=== PATIENT | female | born 1985 | race Caucasian/White ===

== ENCOUNTER 2016-11-25 08:51 | Outpatient (CLI) | payer MEDICAID ==
[~2016-11-25] VITALS: Ht 154.9 cm; Wt 78.8 kg
[2016-11-25 09:23] VITALS: Ht 154.9 cm; Wt 78.8 kg
[2016-11-25 09:24] VITALS: BP 123/58; PULSE 65
[2016-11-25] MEDS ORDERED: PRENAT PO (09:25)
--- NOTE | 2016-11-25 09:58 | RADRPT ---
PROCEDURE: OB ultrasound for biophysical profile CLINICAL INDICATION: Post dates TECHNIQUE: Multiple sonographic images of the pelvis were obtained. Transabdominal views of the g ravid uterus are available for review. The images were reviewed on a PACS workstation. COMPARISON: None FINDINGS: breathing movement = 2/2 tone = 2/2 motion = 2/2 PHANI = 2/2 PHANI = 9.5 cm Single live intrauterine with cardiac activity of 144 bpm. position is cephal ic. The placenta is anterior. IMPRESSION: 1. Single live intrauterine gestation. 2. Biophysical profile = 8/8. 3. PHANI = 9.5 cm. RPTAT: HH .Maritza James MD, MD Date Time Electronically viewed and signed by .Maritza James MD, on 11/25/2016 09:58 .G/
--- NOTE | 2016-11-25 10:01 | RADRPT ---
PROCEDURE: US OB. CLINICAL INDICATION: Post dates TECHNIQUE: Multiple sonographic images of the pelvis were obtained. Transabdominal imaging only w as performed. The images were reviewed on a PACS workstation. COMPARISON: No prior studies are available for comparison. FINDINGS: There is a single live intrauterine gestation. Cardiac activity is present with 148 beats per minut e. position is cephalic. Measurements were made in order to determine age. The results are as follows: BPD = 8.95 cm HC = 32.43 cm AC = 34.73 cm FL = 7.12 cm. Estimated gestational age of approximately 37 weeks 0 days. The estimated date of delivery is 12/16/2016. The EFW = 3264 g, 22 %ile. The placenta is anterior. There is no evidence for an abruption or placenta previa. IMPRESSION: 1. Single live intrauterine gestation of approximately 37 weeks 0 days, by ultrasound criteria. 2. The estimated date of delivery is 12/16/2016. 3. The estimated weight is 32 64 g, 22 %ile. RPTAT: HH .Maritza James MD, MD Date Time Electronically viewed and signed by .Maritza James MD, on 11/25/2016 10:01 .G/
--- NOTE | 2016-11-25 12:28 | QN ---
Documentation Comment 30-year-old with IUP at 40 weeks and 1 day, postdates with care with Dr. Marmolejo, presented for testing including NST and BPP. Patient denies any vaginal bleeding, decreased movement. She reports on and off contractions, that are mild. She denies leaking of fluid. Denies any compensation during her course. Physical examination: General appearance: Alert and oriented 4, does not appear to be in any acute distress. Abdomen: Soft, gravid, fundal height consistent with gestational age, no abdominal tenderness, NST: Category 1 Contractions every 3-4 minutes on the monitor seen Center vaginal examination: Closed posterior long and high BPP: 8/8 space PHANI: 9.1 cm PROCEDURE: OB ultrasound for biophysical profile CLINICAL INDICATION: Post dates TECHNIQUE: Multiple sonographic images of the pelvis were obtained. Transabdominal views of the gravid uterus are available for review. The images were reviewed on a PACS workstation. COMPARISON: None FINDINGS: breathing movement = 2/2 tone = 2/2 motion = 2/2 PHANI = 2/2 PHANI = 9.5 cm Single live intrauterine with cardiac activity of 144 bpm. position is cephalic. The placenta is anterior. IMPRESSION: 1. Single live intrauterine gestation. 2. Biophysical profile = 8/8. 3. PHANI = 9.5 cm. PROCEDURE: US OB. CLINICAL INDICATION: Post dates TECHNIQUE: Multiple sonographic images of the pelvis were obtained. Transabdominal imaging only was performed. The images were reviewed on a PACS workstation. COMPARISON: No prior studies are available for comparison. FINDINGS: There is a single live intrauterine gestation. Cardiac activity is present with 148 beats per minute. position is cephalic. Measurements were made in order to determine age. The results are as follows: BPD = 8.95 cm HC = 32.43 cm AC = 34.73 cm FL = 7.12 cm. Estimated gestational age of approximately 37 weeks 0 days. The estimated date of delivery is 12/16/2016. The EFW = 3264 g, 22 %ile. The placenta is anterior. There is no evidence for an abruption or placenta previa. IMPRESSION: 1. Single live intrauterine gestation of approximately 37 weeks 0 days, by ultrasound criteria. 2. The estimated date of delivery is 12/16/2016. 3. The estimated weight is 32 64 g, 22 %ile. Assessment: IUP at 40 weeks and 1 day, postdates No evidence of labor testing reassuring. Patient was given strict labor precaution and kick count next Follow-up with OB clinic in 3 days or sooner as needed decreased movement , contractions increasing, leaking of fluid or any other concerns Patient verbalized understanding. AZALIA MORALES MD Nov 25, 2016 12:28
== END 2016-11-25 12:06 | disposition home or self-care (01) ==
LOC: OBT 08:51 → L-D 08:51 → OBT 12:06
PROVIDERS: ATTEND Obstetrics & Gynecology
DX: O48.0 Post-term pregnancy (principal); Z3A.40 40 weeks gestation of pregnancy
CPT/HCPCS: 76815; 76818; Z7500; G0463

== ENCOUNTER 2016-11-28 09:07 | Inpatient (IN) | payer MEDICAID ==
[~2016-11-28] VITALS: Ht 154.9 cm; Wt 80.0 kg
[~2016-11-28 09:07] MED LIST: PRENAT PO
[2016-11-28 09:21] VITALS: Ht 154.9 cm; Wt 80.0 kg
[2016-11-28 09:22] VITALS: BP 107/62; PULSE 69; RESP 20
--- NOTE | 2016-11-28 09:51 | TRIAGE ---
OB Triage Datetime Report Generated by CPN: 11/28/2016 09:51 Datetime: 11/28/2016 09:38 Vaginal Exam Dilatation (cms): 0.5 Effacement (%): 0 Exam By: MOBLEY RN Vaginal Bleeding: None Cervix, Consistency: Firm Cervix, Position: Midposition Datetime: 11/28/2016 09:18 Maternal Assessment Level of Consciousness: Fully Conscious DTR's/Clonus: DTRs 2+; No Clonus Headache: Denies Blurred Vision: No Respiratory Effort: Unlabored; Regular Rhythm; Equal Expansion Breath Sounds, Left: Clear and Equal Breath Sounds, Right: Clear and Equal Nausea/Vomiting: Denies RUQ Epigastric Pain: Denies Facial Edema: None Temperature Route: Axillary Fall Risk Assessment History of Falling: (0) No Secondary Diagnosis: (0) No Ambulatory Aid: (0) Bedrest/Nurse Assist IV Therapy: (0) No Gait: (0) Normal/Bedrest/Immobile Mental Status: (0) Oriented to Own Ability Fall Score: 0 Fall Risk Score Definition: No Risk: No action required Datetime: 11/28/2016 09:15 Maternal Assessment Level of Consciousness: Fully Conscious DTR's/Clonus: DTRs 2+ Headache: Denies Blurred Vision: No Nausea/Vomiting: Denies RUQ Epigastric Pain: Denies Facial Edema: None Labor Evaluation Frequency: IRREG Pattern: Normal: <= 5 Contractions in 10 Minutes Heart Rate FHR Baseline Rate: 140 Monitor Mode: External US FHR Baseline Changes: No Baseline Change Variability: Moderate 6-25 bpm Accelerations: 15X15 Decelerations: None Category: Category I Pain Assessment Pain Scale: 3 Pain Presence: Intermittent Pain Type: Contraction Pain Location: Abdomen Membrane Status: Intact Datetime: 11/25/2016 12:36 Time of Arrival: 11/28/2016 09:00 EGA: 40.4 Arrived By: Ambulatory Arrived From: Home Chief Complaint: DECREASED MOVEMENT Movement: Decreased Contractions: Irregular Rupture of Membranes: Denies Vaginal Bleeding: None Vaginal Discharge: Denies Recent Sexual Intercouse: Denies Abdominal Trauma: Not Applicable Patient Complaints: Other Provider Notified: DR ATKINS Initial Plan: EFM US CALL DR ATKINS Datetime: 11/25/2016 11:50 Stage of : OB Triage Vaginal Exam Dilatation (cms): 0.0 Exam By: DR MORALES Vaginal Bleeding: None Cervix, Consistency: Soft Cervix, Position: Posterior Presentation 'A': Cephalic Datetime: 11/25/2016 11:21 Labor Evaluation Frequency: 5-8 Monitor Mode: External Duration (sec)2399: 50-70 Quality: Mild Pattern: Normal: <= 5 Contractions in 10 Minutes Resting Tone [place]: Relaxed Contraction Comments: feels mildly Heart Rate FHR Baseline Rate: 135 Monitor Mode: External US Variability: Moderate 6-25 bpm Accelerations: 10X10 Decelerations: None Category: Category I Pain Assessment Pain Scale: 0 Pain Presence: None/Denies Pain Type: N/A Pain Goal: 3 Pain Relief Measures: Comfort Measures Datetime: 11/25/2016 10:41 Stage of : OB Triage Datetime: 11/25/2016 10:20 Labor Evaluation Frequency: 6-8 Monitor Mode: External Duration (sec)2399: 50-70 Quality: Mild Pattern: Normal: <= 5 Contractions in 10 Minutes Resting Tone [place]: Relaxed Monitor Mode: External US Variability: Moderate 6-25 bpm Decelerations: None Category: Category II Pain Assessment Pain Scale: 0 Pain Presence: None/Denies Pain Type: N/A Pain Goal: 3 Pain Relief Measures: Comfort Measures Datetime: 11/25/2016 09:20 Stage of : OB Triage Assessment Type: Triage Maternal Assessment Level of Consciousness: Fully Conscious DTR's/Clonus: DTRs 2+; No Clonus Headache: Denies Blurred Vision: No Respiratory Effort: Unlabored; Regular Rhythm; Equal Expansion Breath Sounds, Left: Clear and Equal Breath Sounds, Right: Clear and Equal Nausea/Vomiting: Denies RUQ Epigastric Pain: Denies Lower Extremities Edema: Bilateral Lower Extremities Degree: 1+ Upper Extremities Edema: None Degree: None Facial Edema: None Temperature Route: Axillary Fall Risk Assessment History of Falling: (0) No Secondary Diagnosis: (0) No Ambulatory Aid: (0) Bedrest/Nurse Assist IV Therapy: (0) No Gait: (0) Normal/Bedrest/Immobile Mental Status: (0) Oriented to Own Ability Fall Score: 0 Fall Risk Score Definition: No Risk: No action required Labor Evaluation Frequency: X1 Monitor Mode: External Duration (sec)2399: 60 Quality: Mild Pattern: Normal: <= 5 Contractions in 10 Minutes Resting Tone [place]: Relaxed Heart Rate FHR Baseline Rate: 145 Monitor Mode: External US Variability: Moderate 6-25 bpm Decelerations: None Category: Category I Pain Assessment Pain Scale: 0 Pain Presence: None/Denies Pain Type: N/A Pain Goal: 3 Pain Relief Measures: Comfort Measures Datetime: 11/25/2016 09:19 EGA: 40.1 Datetime: 11/25/2016 09:18 Time of Arrival: 11/25/2016 08:51 Arrived By: Ambulatory Arrived From: Home Chief Complaint: WAS SEEN IN OFFICE YESTERDAY, TOLD TO COME TODAY FOR BPP/EFW DUE TO POST DATES DENIES UC'S, BLEEDING OR LEAKING Movement: Present Contractions: Denies/Absent Rupture of Membranes: Denies Vaginal Bleeding: None Vaginal Discharge: Denies Recent Sexual Intercouse: Denies Abdominal Trauma: Not Applicable Patient Complaints: None Time Provider Notified: 11/25/2016 10:41 Provider Notified: lewis Initial Plan: MONITOR, BPP/EFW
--- NOTE | 2016-11-28 09:59 | RADRPT ---
PROCEDURE: OB ultrasound for biophysical profile CLINICAL INDICATION: Biophysical profile. . Post dates TECHNIQUE: Multiple sonographic images of the pelvis were obtained. Transabdominal view of the gr avid uterus are available for review. The images were reviewed on a PACS workstation. COMPARISON: 11/25/2016 FINDINGS: Single intrauterine gestation. Presentation: Cephalic. Partially visualized placenta: Anterior. breathing movement = 2/2 tone = 2/2 motion = 2/2 PHANI = 2/2 PHANI = 7.0 cm heart rate: 147 beats per minute IMPRESSION: Single intrauterine gestation. Biophysical profile 03/30 RPTAT: AADD .Joshua Ryder MD, Date Time Electronically viewed and signed by .Joshua Ryder MD, on 11/28/2016 09:59 .B/
[2016-11-28] MEDS ORDERED: OXYTOCIN 30 UNITS/LR 500 ML IV PRN (10:00)
[2016-11-28] MEDS ORDERED: METHYLERGONOVINE 0.2 MG INJ IM PRN (10:00)
[2016-11-28] MEDS ORDERED: BUTORPHANOL 2 MG INJ IV PRN (10:00)
[2016-11-28] MEDS ORDERED: OXYTOCIN 30 UNITS/LR 500 ML IV SCH ×2 (10:00)
[2016-11-28] MEDS ORDERED: IBUPROFEN 600 MG TAB PO PRN (10:00)
[2016-11-28] MEDS ORDERED: CARBOPROST 250 MCG INJ IM PRN (10:00)
[2016-11-28] MEDS ORDERED: AMPICILLIN 2 GM/NS (PMX) 100 ML IV ONE (10:00)
[2016-11-28] MEDS ORDERED: LIDOCAINE 1% (MPF) 30 ML INJ INJ PRN (10:00)
[2016-11-28] MEDS ORDERED: MISOPROSTOL 200 MCG TAB PR PRN (10:00)
[2016-11-28] MEDS: LACTATED RINGER'S 1,000 ML IV SCH ×2 (10:21→20:58)
[2016-11-28 10:23] LABS: ADD SCAN DIFF NO
[2016-11-28] MEDS ORDERED: LACTATED RINGER'S 1,000 ML IV PRN (10:30)
[2016-11-28 10:33] LABS: BASOPHILS % 0.3 % (0.0-2.0); EOSINOPHILS # 0.1 10^3/ul (0.0-0.5); EOSINOPHILS % 0.7 % (0.0-7.0); HEMATOCRIT 37.3 % (37.0-47.0); HEMOGLOBIN 12.6 g/dl (12.0-16.0); LYMPHOCYTES # 1.3 10^3/ul (0.8-2.9); LYMPHOCYTES % 18.3 % (15.0-51.0); MEAN CORPUSCULAR HEMOGLOBIN 34.1 pg (29.0-33.0); MEAN CORPUSCULAR HGB CONC 33.8 g/dl (32.0-37.0); MEAN CORPUSCULAR VOLUME 100.8 fl (82.0-101.0); MEAN PLATELET VOLUME 11.6 fl (7.4-10.4); MONOCYTE # 0.4 10^3/ul (0.3-0.9); MONOCYTES % 5.4 % (0.0-11.0); NEUTROPHIL # 5.3 10^3/ul (1.6-7.5); PLATELET COUNT 164 10^3/UL (140-415); RED CELL DISTRIBUTION WIDTH 12.2 % (11.5-14.5); WHITE BLOOD COUNT 7.2 10^3/ul (4.8-10.8)
[2016-11-28 10:47] LABS: INR 0.89; PT RATIO 0.9
[2016-11-28 10:48] LABS: PARTIAL THROMBOPLASTIN TIME 24.1 Sec (25.0-35.0)
[2016-11-28] MEDS: MISOPROSTOL 25 MCG CAPSULE PO SCH ×4 (11:27→23:48)
--- NOTE | 2016-11-28 13:31 | HP ---
Date/Time of Note Date/Time of Note DATE: 11/28/16 TIME: 13:28 OB - History Hx of Present Chief Complaint: induction of labor Estimated Due Date: Nov 24, 2016 : 1 Para: 0 Spontaneous : 0 Therapeutic : 0 Care: Limited Care Ultrasounds: Other (normal third trimester ultrasound) Obstetrical Complications: None Medical Complications: None Past Family/Social History * Past Medical, Surgical, Family and Obstetric Histories reviewed from chart. GBS Status: Positive OB Admission Exam Vital Signs Vital Signs Vital Signs Date Time Temp Pulse Resp B/P Pulse Ox O2 Delivery O2 Flow Rate FiO2 11/28/16 09:22 98.1 69 20 107/62 Room Air Physical Exam HEENT: WNL Heart: Rhythm Normal Lungs: Clear Abdomen: WNL Extremities: Normal Cervical Dilatation: Fingertip Effacement: 50% Station: -2 Membranes: Intact Heart Rate: 130's Accelerations: Accelerations Present Decelerations: No Decelerations Varibility: Minimum Last 72 hours Lab Results CBC & BMP 11/28/16 10:05 OB Assessment/Plan Reason for admission: induction of labor Plan: Induction Induction Method: per Misoprostol Protocol SANTA ATKINS MD Nov 28, 2016 13:31
[2016-11-28] MEDS: AMPICILLIN 1 GM/NS (PMX) 50 ML IV SCH ×3 (14:32→22:30)
[2016-11-29] MEDS: AMPICILLIN 1 GM/NS (PMX) 50 ML IV SCH ×5 (02:31→19:27)
[2016-11-29] MEDS ORDERED: MISOPROSTOL 200 MCG TAB PO SCH (03:30)
[2016-11-29] MEDS: MISOPROSTOL 25 MCG CAPSULE PO SCH ×2 (04:17→08:27)
[2016-11-29] MEDS: LACTATED RINGER'S 1,000 ML IV SCH ×3 (05:46→22:05)
[2016-11-29] MEDS ORDERED: OXYTOCIN 30 UNITS/LR 500 ML IV SCH (13:30)
[2016-11-30] MEDS: AMPICILLIN 1 GM/NS (PMX) 50 ML IV SCH ×5 (02:00→14:04)
[2016-11-30] MEDS: LACTATED RINGER'S 1,000 ML IV SCH ×4 (06:07→20:56)
[2016-11-30] MEDS ORDERED: FENTAnyl 2MCG/ML-ROPIV 0.2% 100 ML ONE (08:44)
[2016-11-30] MEDS ORDERED: FENTAnyl 2MCG/ML-ROPIV 0.2% 100 ML BAG EPI SCH (10:00)
[2016-11-30] MEDS ORDERED: NALOXONE (0.4 MG/ML) INJ IV PRN ×2 (10:00→18:00)
[2016-11-30] MEDS ORDERED: CEFAZOLIN 2 GM/50 ML (PMX) 50 ML IVPB SCH (15:00)
[2016-11-30] MEDS ORDERED: OXYTOCIN 30 UNITS/LR 500 ML IV SCH (15:00)
[2016-11-30] MEDS ORDERED: PHENYLephrine (100 MCG/ML) 5ML SYG ONE (17:27)
[2016-11-30] MEDS ORDERED: OXYTOCIN 10 UNIT INJ ONE ×2 (17:27→18:05)
[2016-11-30] MEDS ORDERED: LIDOCAINE 100 MG SYRINGE ONE (17:27)
[2016-11-30] MEDS ORDERED: morphine SULFATE/PF (10 MG/10 ML) INJ ONE (17:27)
--- NOTE | 2016-11-30 17:37 | QN ---
Documentation Comment Patient has progressed to 2 cm dilation and there has been no further progress despite being on oxytocin, having adequate contractions and amniotomy. Patient is for delivery by primary due to arrest of dilation. Risks, benefits and alternatives were explained to the patient who stated she understood and gave informed consent for the procedure. SANTA ATKINS MD Nov 30, 2016 17:37
[2016-11-30] MEDS ORDERED: ONDANSETRON 4 MG INJ ONE (17:57)
[2016-11-30] MEDS ORDERED: KETOROLAC 30 MG INJ ONE (17:58)
[2016-11-30] MEDS ORDERED: METOCLOPRAMIDE 10 MG INJ ONE (17:58)
[2016-11-30] MEDS ORDERED: DEXAMETHASONE 4 MG/ML 1 ML INJ ONE (17:58)
[2016-11-30] MEDS ORDERED: morphine 2 MG INJ IV PRN ×2 (18:00)
[2016-11-30] MEDS ORDERED: HYDROmorphONE 1 MG/ML SYG IV PRN ×2 (18:00)
[2016-11-30] MEDS ORDERED: PROCHLORPERAZINE 10 MG INJ IV PRN (18:00)
[2016-11-30] MEDS ORDERED: DIPHENHYDRAMINE 50 MG INJ IV PRN (18:00)
[2016-11-30] MEDS ORDERED: ONDANSETRON 4 MG INJ IV PRN (18:00)
[2016-11-30] MEDS ORDERED: MEPERIDINE 100 MG INJ ONE (18:18)
--- NOTE | 2016-11-30 19:13 | OPR ---
DATE OF OPERATION: 11/30/2016 PREOPERATIVE DIAGNOSES: at term with arrest of dilation. POSTOPERATIVE DIAGNOSES: at term with arrest of dilation. OPERATION PERFORMED: Primary low transverse section. SURGEON: Duke Nguyen MD VIDEO GAME DESIGNER: Angelia Shields MD ANESTHESIA: Epidural. ANESTHESIOLOGIST: Dr. Greenberg PROCEDURE: The patient was taken to the operating room and placed on the operating table. After ad equate epidural anesthesia was given, the patient was placed in supine position. The area was prepa red and draped in the usual sterile fashion. Epidural anesthesia was tested and was satisfactory. Using a scalpel, Pfannenstiel incision was made about 2 fingerbreadths above the symphysis pubis. I ncision was carried down to the fascia. The fascia was incised and extended bilaterally with James s cissors. Two Kochers were used to separate the fascia from the muscle. The muscle was dissected do wn to peritoneum. The peritoneum was bluntly entered. Using a scalpel, a small transverse incision was made in the dorsum of the uterus. Upon entering the uterine cavity, bandage scissors were inse rted to extend the incision bilaterally, curved up. Baby was delivered from cephalic presentation a fter suctioning clear of amniotic fluid. The baby was handed off to the team in attendance . Apgars were 9 and 9. The placenta was delivered without difficulty. Uterus was closed with #1 M onocryl continuous locked. After assuring hemostasis, both ovaries and tubes were inspected, all lo oked normal. The peritoneal cavity was irrigated with warm saline. The peritoneum was closed with 2-0 Vicryl continuous. The fascia was closed with #1 Vicryl continuous in 2 segments. Subcutaneous tissue was reapproximated with 2-0 plain. The skin was closed with lexi. ESTIMATED BLOOD LOSS: 600 mL. COMPLICATIONS: None. COUNTS: All counts were correct. Dictated By: SANTA ATKINS MD GD/NTS Conf#: [id number] DID#: [id number]
[2016-11-30 21:00] VITALS: BP 126/74; PULSE 68; RESP 18
[2016-11-30] MEDS ORDERED: OXYTOCIN 30 UNITS/LR 500 ML IV PRN (21:00)
[2016-11-30] MEDS ORDERED: LANOLIN 7 GM TUBE TOP PRN (21:00)
[2016-11-30] MEDS: SENNA/DOCUSATE NA (8.6MG/50MG) TAB PO SCH (21:00)
[2016-11-30] MEDS ORDERED: MISOPROSTOL 200 MCG TAB PR PRN (21:00)
[2016-11-30] MEDS ORDERED: CARBOPROST 250 MCG INJ IM PRN (21:00)
[2016-11-30] MEDS ORDERED: METHYLERGONOVINE 0.2 MG INJ IM PRN (21:00)
[2016-11-30 21:30] VITALS: BP 130/88; PULSE 74; RESP 18
[2016-11-30] MEDS: OXYTOCIN 30 UNITS/LR 500 ML IV SCH (21:46)
[2016-11-30] MEDS: IBUPROFEN 800 MG TAB PO SCH (22:00)
[2016-12-01] MEDS: OXYTOCIN 30 UNITS/LR 500 ML IV SCH (00:11)
[2016-12-01 01:30] VITALS: BP 128/76; PULSE 70; RESP 18
[2016-12-01] MEDS: LACTATED RINGER'S 1,000 ML IV SCH ×3 (04:32→21:12)
[2016-12-01] MEDS: IBUPROFEN 800 MG TAB PO SCH ×3 (06:00→21:55)
--- NOTE | 2016-12-01 07:08 | OPPN ---
Date/Time of Note Date/Time of Note DATE: 12/01/16 TIME: 07:07 Post-Anesthesia Notes Post-Anesthesia Note Last documented vital signs Vital Signs Date Time Temp Pulse Resp B/P Pulse Ox O2 Delivery O2 Flow Rate FiO2 12/01/16 03:18 95 21 12/01/16 01:30 98.2 70 18 128/76 Room Air Activity: WNL Respiratory function: WNL Cardiovascular function: WNL Mental status: Baseline Pain reasonably controlled: Yes Hydration appropriate: Yes Nausea/Vomiting absent: Yes PRESTON GAONA MD Dec 01, 2016 07:07
[2016-12-01] MEDS: KETOROLAC 30 MG INJ IV PRN ×2 (07:27→13:20)
[2016-12-01 08:12] VITALS: BP 110/57; PULSE 80; RESP 17
[2016-12-01] MEDS: SENNA/DOCUSATE NA (8.6MG/50MG) TAB PO SCH ×2 (09:08→21:55)
[2016-12-01 09:57] LABS: ADD SCAN DIFF NO
[2016-12-01 10:02] LABS: BASOPHILS % 0.2 % (0.0-2.0); EOSINOPHILS % 0.2 % (0.0-7.0); HEMATOCRIT 29.7 % (37.0-47.0); HEMOGLOBIN 10.1 g/dl (12.0-16.0); LYMPHOCYTES # 1.6 10^3/ul (0.8-2.9); LYMPHOCYTES % 14.6 % (15.0-51.0); MEAN CORPUSCULAR HEMOGLOBIN 33.9 pg (29.0-33.0); MEAN CORPUSCULAR VOLUME 99.7 fl (82.0-101.0); MEAN PLATELET VOLUME 11.4 fl (7.4-10.4); MONOCYTE # 0.6 10^3/ul (0.3-0.9); MONOCYTES % 5.3 % (0.0-11.0); NEUTROPHIL # 8.8 10^3/ul (1.6-7.5); NEUTROPHILS % 79.2 % (39.0-77.0); PLATELET COUNT 139 10^3/UL (140-415); RED BLOOD COUNT 2.98 10^6/ul (4.20-5.40); RED CELL DISTRIBUTION WIDTH 11.9 % (11.5-14.5); WHITE BLOOD COUNT 11.1 10^3/ul (4.8-10.8)
[2016-12-01 12:00] VITALS: BP 102/56; PULSE 76; RESP 18
--- NOTE | 2016-12-01 12:33 | QN ---
Documentation Comment No complaint Afebrile VSS Abdomen soft ND POD #1 Stable Ambulate Advance diet. SANTA ATKINS MD Dec 01, 2016 12:33
[2016-12-01 15:32] VITALS: BP 110/54; PULSE 72; RESP 16
[2016-12-01] MEDS: OXYCODONE/ACETAMINOPHEN (5/325) TAB PO PRN (18:56)
[2016-12-01 19:30] VITALS: BP 129/62; PULSE 62; RESP 20
[2016-12-02] MEDS: OXYCODONE/ACETAMINOPHEN (5/325) TAB PO PRN ×3 (00:10→12:21)
[2016-12-02 04:48] VITALS: BP 114/55; PULSE 65; RESP 20
[2016-12-02] MEDS: LACTATED RINGER'S 1,000 ML IV SCH ×2 (04:56→12:56)
[2016-12-02] MEDS: IBUPROFEN 800 MG TAB PO SCH ×3 (05:14→21:51)
[2016-12-02 08:00] VITALS: BP 106/61; PULSE 71; RESP 18
[2016-12-02] MEDS: SENNA/DOCUSATE NA (8.6MG/50MG) TAB PO SCH ×2 (08:19→21:51)
[2016-12-02 16:00] VITALS: BP 129/69; PULSE 61; RESP 18
--- NOTE | 2016-12-02 18:43 | QN ---
Documentation Comment No complaint Afebrile VSS Abdomen soft POD #2 Stable Continue with present care. SANTA ATKINS MD Dec 02, 2016 18:42
--- NOTE | 2016-12-02 18:56 | DS ---
DATE OF ADMISSION: 11/28/2016 DATE OF DISCHARGE: 12/03/2016 ADMITTING DIAGNOSIS: at term. HISTORY: A 30-year-old female, 1, para 0 at the time of admission, para 1 at time of discha rge, with term was admitted for induction of labor. On 11/30/2016, after obtaining inform ed consent, the patient underwent a primary low transverse section due to arrest of dilatio n. The patient's operation was uncomplicated. Postoperatively, the patient was given clear liquid diet which was advanced to regular diet, which she tolerated well. The patient is discharged on pos top day #3 after having had adequate bladder and bowel function. CONDITION ON DISCHARGE: Stable. DISCHARGE INSTRUCTIONS: DIET: Regular. ACTIVITIES: Pelvic rest and no strenuous activities. MEDICATIONS: 1. Motrin as needed for pain. 2. Continue with vitamins, ferrous sulfate. Follow up in clinic in 1 week. FINAL DIAGNOSES: 1. Term delivered by section. 2. Arrest of dilation. 3. Mother with single liveborn. Dictated By: SANTA ATKINS MD GD/NTS Conf#: [id number] DID#: [id number]
[2016-12-02 19:35] VITALS: BP 109/52; PULSE 67; RESP 18
[2016-12-03] VITALS: BP 128/68; PULSE 69; RESP 18
[2016-12-03 04:00] VITALS: BP 135/69; PULSE 54; RESP 18
[2016-12-03] MEDS: IBUPROFEN 800 MG TAB PO SCH (05:22)
[2016-12-03 08:00] VITALS: BP 139/79; PULSE 62; RESP 18
[2016-12-03] MEDS ORDERED: DIPHTH/TET/ACEL PERTUSS (ADULT) 0.5 ML VIAL IM* ONE (09:00)
[2016-12-03] MEDS: SENNA/DOCUSATE NA (8.6MG/50MG) TAB PO SCH (09:19)
[2016-12-03] MEDS: OXYCODONE/ACETAMINOPHEN (5/325) TAB PO PRN (09:25)
== END 2016-12-03 14:13 | disposition home or self-care (01) | DRG 766 ==
LOC: OBT 09:07 → L-D 09:07 → OBT 09:45 → L-D 09:45 → PP1 11-30 20:58
PROVIDERS: ADMIT Obstetrics & Gynecology; ATTEND Obstetrics & Gynecology
PROC: 10D00Z1 Extraction of Products of Conception, Low, Open Approach (ICD-10-PCS; principal; 2016-11-30 17:00)
DX: O48.0 Post-term pregnancy (principal); O62.1 Secondary uterine inertia; Z3A.40 40 weeks gestation of pregnancy; Z37.0 Single live birth
CPT/HCPCS: 36415; 62319; 76818; 85025; 85610; 85730; 86592; 86900; 86901; 87340; 90715; 94760; 99464; G0463; J0290; J0690; J1100; J1885; J2001; J2175; J2274; J2370; J2405; J2590; J2765; J3010; J7120